=== PATIENT | female | born 1990 | race African-American/Black ===

== ENCOUNTER 2017-02-04 03:41 | Emergency (ER) | payer OTHER ==
[~2017-02-04] VITALS: Ht 167.6 cm; Wt 65.8 kg
--- NOTE | 2017-02-04 03:58 | NUR ---
PT HANH CHOWDHURY FROM HOME UNDER POLICE CUSTODY. PT ANSWERS TO NAME ONLY, NONCOHERENT BABELING, RACING THOUGHTS, TACHYPNIC RR 26, OXYGEN 99% HR 119 SINUS TACH ON MONITOR. BP 147/97. PT ON 4 POINT SOFT RESTRAINTS FOR DANGER TO SELF.
[2017-02-04] MEDS ORDERED: OLANZAPINE 10 MG VIAL IM ONE ×2 (04:05→04:30)
[2017-02-04 04:25] LABS: BASOPHILS % (AUTO) 0.3 % (0.0-2.0); EOSINOPHILS # (AUTO) 0.1 /CMM (0.0-0.7); HEMATOCRIT 45 % (33-45); HEMOGLOBIN 14.6 g/dL (11.5-14.8); LYMPHOCYTES # (AUTO) 1.1 /CMM (0.8-4.8); LYMPHOCYTES % (AUTO) 13.5 % (20.0-44.0); MEAN CORPUSCULAR HEMOGLOBIN 29 PG (26.0-33.0); MEAN CORPUSCULAR HGB CONC 33 g/dl (31.0-36.0); MEAN CORPUSCULAR VOLUME 88 fL (82-100); MONOCYTES # (AUTO) 0.5 /CMM (0.1-1.30); NEUTROPHILS # (AUTO) 6.7 /CMM (1.8-8.9); NEUTROPHILS % (AUTO) 79.2 % (43.0-81.0); PLATELET COUNT (AUTO) 176 /CMM (150-450); RDW COEFFICIENT OF VARIATION 14.1 (11.5-15.0); RED BLOOD CELL COUNT(AUTO) 5.05 MIL/uL (4.0-5.2); WHITE BLOOD COUNT (AUTO) 8.4 K/uL (4.3-11.0)
[2017-02-04 04:39] LABS: ALANINE AMINOTRANSFERASE 36 U/L (12-78); ALBUMIN 4.7 g/dL (3.4-5.0); ALCOHOL, BLOOD < 3 mg/dL (0-0); ALKALINE PHOSPHATASE 42 U/L (46-116); ASPARTATE AMINOTRANSFERASE 27 U/L (15-37); BILIRUBIN,DIRECT 0.2 mg/dL (0.0-0.2); BILIRUBIN,TOTAL 0.9 mg/dL (0.2-1.0); CARBON DIOXIDE 23 mmol/L (21-32); CHLORIDE 105 mmol/L (98-107); CREATININE 1.1 mg/dL (0.6-1.3); GLUCOSE 115 mg/dL (74-106); POTASSIUM 3.5 mmol/L (3.5-5.1); SALICYLATE 2.9 mg/dL (2.8-20.0); SODIUM SERUM 142 mmol/L (136-145); UREA NITROGEN, BLOOD 10 mg/dL (7-18)
[2017-02-04 04:55] LABS: ACETAMINOPHEN 0 ug/ml (10-30)
--- NOTE | 2017-02-04 05:15 | NUR ---
boyfriend is bedside at this time. pt is still talking rapidley, unable to answer questions regarding what happened prior to hospitalization. breathing is even/unlabored, [address] as pt seem to be aggitated/anxious. ER MD aware
--- NOTE | 2017-02-04 05:31 | NUR ---
pt in 4 point restraints, distal sensation intact, skin intact, pt is anxious, unable to answer simple questions at this time
--- NOTE | 2017-02-04 06:19 | NUR ---
educated pt on need for urine sample. offered pt toileting in restroom or bedpan, per pt request bedpan provided for pt urine collection
--- NOTE | 2017-02-04 07:13 | NUR ---
urine sample provided called lab for pickup.
--- NOTE | 2017-02-04 07:45 | NUR ---
HUBER MENDEZ CALLED FOR EVAL
[2017-02-04 07:51] LABS: APPEARANCE,URINE SL CLOUDY (CLEAR); BILIRUBIN,URINE 1+ (NEGATIVE); BLOOD, URINE TRACE-INTA Ery/uL (NEGATIVE); COLOR,URINE YELLOW (YELLOW); KETONES,URINE 2+ (NEGATIVE); LEUKOCYTE ESTERASE ,URINE NEGATIVE (NEGATIVE); NITRITE, URINE NEGATIVE (NEGATIVE); PROTEIN,URINE NEGATIVE (NEGATIVE); UGLUCOSE NEGATIVE (NEGATIVE); UROBILINOGEN,URINE 0.2 EU/dL (0.2)
[2017-02-04 08:10] LABS: RBC,URINE 0-2 /HPF (0-2)
[2017-02-04 08:11] LABS: BACTERIA,URINE Few /HPF (None Seen); SQUAMOUS EPITHELIAL CELL,UR Few /HPF (None Seen); WBC,URINE 0-2 /HPF (0-3)
--- NOTE | 2017-02-04 09:30 | NUR ---
HUBER MENDEZ AT BEDSIDE FOR EVAL
--- NOTE | 2017-02-04 11:51 | NUR ---
PER MARCELLE, PT DENIES AH/VH. PT REFERRED TO F/U [facility].
--- NOTE | 2017-02-04 11:52 | NUR ---
Patient discharged to home in stable condition. Written and verbal after care instructions given. Patient verbalizes understanding of instruction.
[2017-02-04 12:08] VITALS: BP 123/78
== END 2017-02-04 12:10 | disposition home or self-care (01) ==
LOC: ER 03:43
DX: F41.9 Anxiety disorder, unspecified (principal); F32.9 Major depressive disorder, single episode, unspecified
CPT/HCPCS: 36415; 80048-TC; 80076-TC; 80305; 81000-TC; 84703-TC; 85025-TC; A4606; G0480; J3490; Z7610